=== PATIENT | female | born 1955 | race American Indian/Alaskan Native ===

== ENCOUNTER 2018-08-14 06:36 | Emergency (ER) | payer SELFPAY ==
--- NOTE | 2018-08-14 08:07 | Emergency Department Report ---
ED General Adult HPI - General Chief complaint: High BP Stated complaint: HIGH BP Time Seen by Provider: 08/14/18 07:52 Source: patient Mode of arrival: Ambulatory Limitations: No Limitations - History of Present Illness Initial comments: Patient is 61-year-old female Emergency room for follow-up blood pressure medications and uncontrolled hypertension. Patient states that her blood pressure has been uncontrolled for approximately 4 weeks. Patient states about 4 weeks ago she noticed she was running low on her blood pressure medication and started split dosing in taking the medications every other day. Patient states she takes 20 mg of lisinopril and her blood pressure was controlled on the 20 mg of lisinopril and she never returned to her primary care for further management due to financial constraints. The patient denies chest pain or shortness of breath. Patient states at times her blood pressures extremely high she has some blurry vision but patient denies blurry vision at this time. Patient states took 20 mg lisinopril just prior to coming to the emergency room. Patient denies diaphoresis. Patient denies fever and chills. Patient denies any physical complaints at this time. -: Sudden Severity scale (0 -10): 0 Consistency: constant Improves with: medication, rest Worsens with: movement Associated Symptoms: other (blurry vision at times when bp is extremely high but has resolved. ). denies: confusion, chest pain, cough, diaphoresis, fever/chills, headaches, loss of appetite, malaise, nausea/vomiting, rash, seizure, shortness of breath, syncope, weakness Treatments Prior to Arrival: none - Related Data Previous Rx's Medication Instructions Recorded Last Taken Type Lisinopril 20 mg PO DAILY #30 tablet 08/14/18 Unknown Rx hydroCHLOROthiazide 12.5 mg PO DAILY 30 Days #30 tablet 08/14/18 Unknown Rx [Hydrochlorothiazide] Allergies Allergy/AdvReac Type Severity Reaction Status Date / Time No Known Allergies Allergy Verified 08/14/18 06:47 ED Review of Systems ROS: Stated complaint: HIGH BP Other details as noted in HPI Constitutional: denies: chills, fever Eyes: vision change. denies: eye pain, eye discharge ENT: denies: ear pain, throat pain Respiratory: denies: cough, shortness of breath, wheezing Cardiovascular: denies: chest pain, palpitations Endocrine: no symptoms reported Gastrointestinal: denies: abdominal pain, nausea, diarrhea Genitourinary: denies: urgency, dysuria, discharge Musculoskeletal: denies: back pain, joint swelling, arthralgia Skin: denies: rash, lesions Neurological: denies: headache, weakness, paresthesias Psychiatric: denies: anxiety, depression Hematological/Lymphatic: denies: easy bleeding, easy bruising ED Past Medical Hx - Past Medical History Previous Medical History?: Yes Hx Hypertension: Yes - Surgical History Past Surgical History?: Yes Additional Surgical History: tubal ligation - Family History Family history: no significant - Social History Smoking Status: Never Smoker Substance Use Type: None - Medications Home Medications: Home Medications Medication Instructions Recorded Confirmed Last Taken Type Lisinopril 20 mg PO DAILY #30 tablet 08/14/18 Unknown Rx hydroCHLOROthiazide 12.5 mg PO DAILY 30 Days #30 tablet 08/14/18 Unknown Rx [Hydrochlorothiazide] ED Physical Exam - General Limitations: No Limitations General appearance: alert, in no apparent distress - Head Head exam: Present: atraumatic, normocephalic - Eye Eye exam: Present: normal appearance - ENT ENT exam: Present: mucous membranes moist - Neck Neck exam: Present: normal inspection - Respiratory Respiratory exam: Present: normal lung sounds bilaterally. Absent: respiratory distress - Cardiovascular Cardiovascular Exam: Present: regular rate, normal rhythm. Absent: systolic murmur, diastolic murmur, rubs, gallop - GI/Abdominal GI/Abdominal exam: Present: soft, normal bowel sounds - Extremities Exam Extremities exam: Present: normal inspection - Back Exam Back exam: Present: normal inspection - Neurological Exam Neurological exam: Present: alert, oriented X3 - Psychiatric Psychiatric exam: Present: normal affect, normal mood - Skin Skin exam: Present: warm, dry, intact, normal color. Absent: rash ED Course Vital Signs 08/14/18 08/14/18 08/14/18 06:42 07:24 09:21 Temperature 98.1 F Pulse Rate 63 62 58 L Respiratory 14 16 16 Rate Blood Pressure 191/104 Blood Pressure 168/94 168/75 [Left] O2 Sat by Pulse 98 100 97 Oximetry - Reevaluation(s) Reevaluation #1: Initial evaluation done. The patient's blood pressure is improving. Patient while labs done and given refill of her blood pressure medication. We will monitor blood pressure in the ER and change treatment when necessary 08/14/18 07:57 Lopressor and now is 149/85. Patient's blood pressures improved. Patient will be given refill for blood pressure medication. Discussed all results with patient. Patient agrees with plan of care. Patient is stable for discharge. Patient given discharge instructions. Patient given return to ER instructions. Patient encouraged to eat a heart healthy diet as well as a low salt diet. Patient to increase her water. Patient voiced understanding of all instructions. 08/14/18 09:16 ED Medical Decision Making - Lab Data Result diagrams: 08/14/18 08:12 08/14/18 08:12 - Medical Decision Making Patient is 61-year-old female that presents emergency with complaints of elevated blood pressure and noncompliance of medication. Needed a refill. Patient given refill of her blood pressure medications. Patient's current blood pressure regimen is lisinopril and patient stopped taking her heart chlorothiazide 4 weeks ago. Patient was given a refill for lisinopril 20 mg and heart chlorothiazide 12.5 mg encouraged follow-up with her primary care. Patient to increase water. Patient's laceration found to have a mild hypokalemia. Patient encouraged to increase water. Patient usually low salt diet. - Differential Diagnosis education noncompliance. htn. Hypertensive urgency. Blurred vision Critical care attestation.: If time is entered above; I have spent that time in minutes in the direct care of this critically ill patient, excluding procedure time. ED Disposition Clinical Impression: Hypertensive urgency, Hypokalemia Hypertension Qualifiers: Hypertension type: essential hypertension Qualified Code(s): I10 - Essential (primary) hypertension Disposition: DC- TO HOME OR SELFCARE Is pt being admited?: No Does the pt Need Aspirin: No Condition: Stable Instructions: Hypertension (ED) Additional Instructions: Patient to follow up with primary care in 2-3 days. Patient to return to the ER if condition worsens. Patient to increase water. Patient is a low-salt heart healthy diet. Patient to take meds as directed. Patient to monitor blood pressure at home. Patient to keep a blood pressure log. Patient to take all prescription medications as directed. Prescriptions: hydroCHLOROthiazide [Hydrochlorothiazide] 12.5 mg PO DAILY 30 Days #30 tablet Lisinopril 20 mg PO DAILY #30 tablet Referrals: PRIMARY CARE, [Primary Care Provider] - 2-3 Days Forms: Work/School Release Form(ED) Time of Disposition: 09:23
[2018-08-14 08:23] LABS: Hematocrit 43.3 % (30.3-42.9); Hemoglobin 14.8 gm/dl (10.1-14.3); Mean Corpuscular HGB Conc 34 % (30-34); Mean Corpuscular Volume 90 fl (79-97); Platelet Count 174 K/mm3 (140-440); Red Blood Count 4.83 M/mm3 (3.65-5.03); Red Cell Distribution Width 13.1 % (13.2-15.2)
[2018-08-14 08:49] LABS: Alanine Aminotransferase 13 units/L (7-56); Albumin 4.2 g/dL (3.9-5); BUN/Creatinine Ratio 10; Blood Urea Nitrogen 7 mg/dL (7-17); Calcium 8.6 mg/dL (8.4-10.2); Hemolysis Index 5
[2018-08-14 09:22] VITALS: BP 168/75
== END 2018-08-14 09:47 | disposition home or self-care (01) ==
LOC: ED 06:36
DX: I16.0 Hypertensive urgency (principal); I10 Essential (primary) hypertension; E87.6 Hypokalemia; Z98.51 Tubal ligation status
CPT/HCPCS: 36415; 80053; 85027; 99283